=== PATIENT | male | born 1955 | race Caucasian/White ===

== ENCOUNTER 2021-07-13 09:17 | Inpatient (IN) ==
[2021-07-13] MEDS ORDERED: SODIUM CHLORIDE 0.9% 2,000 ML IV STA (09:28)
[2021-07-13] MEDS ORDERED: PANTOPRAZOLE INJ 80 MG in SODIUM CHLORIDE 0.9% 100 ML IV STA (09:28)
[2021-07-13] MEDS ORDERED: ONDANSETRON 4 MG/2 ML VIAL IV STA (09:28)
[2021-07-13 09:39] LABS: Basophils # 0.1 10*3/uL (0.0-0.2); Basophils % 0.7 % (0.0-0.8); Eosinophils # 0.6 10*3/uL (0.0-0.87); Eosinophils % 4.5 % (0.00-10.9); Hematocrit 37.5 VOL% (42.0-52.0); Hemoglobin 12.1 GM/DL (14.0-18.0); Immature Granulocytes % 0.3 %; Immature Granulocytes Absolute 0.04 #; Lymphocytes # 3.4 10*3/uL (1.4-4.0); Lymphocytes % 28.1 % (21.2-54.2); Mean Corpuscular HGB Conc 32.3 GM/DL (32-36); Mean Corpuscular Volume 96.2 FL (87-102); Mean Platelet Volume 10.2 FL (9.6-12.0); Neutrophils % 56.4 % (38.7-73.9); Platelet Count 336 T/CUMM (130-400); Red Cell Distribution Width 13.9 % (9.3-17.3); White Blood Count 12.1 T/CUMM (4-12)
[2021-07-13 09:50] LABS: PT Patient Result 11.3 SECS (10.5-12.0); Partial Thromboplastin Time 22.5 SECS (23.8-32.1)
[2021-07-13 10:09] LABS: Albumin 3.5 G/DL (3.4-5.0); Bilirubin,Total 0.4 MG/DL (0.20-1.00); Calcium 8.6 MG/DL (8.5-10.1); Osmolality,Calculated 289.3 MOS/KG (273-304); Total Protein 6.4 G/DL (6.4-8.2)
[2021-07-13] MEDS ORDERED: GLUCAGON 1 MG VIAL IM PRN (10:59)
[2021-07-13] MEDS ORDERED: DEXTROSE 50% 25 GM/50 ML VIAL IV PRN (10:59)
[2021-07-13] MEDS ORDERED: ONDANSETRON 4 MG/2 ML VIAL IV PRN (11:00)
[2021-07-13] MEDS ORDERED: ACETAMINOPHEN 325 MG TABLET PO PRN (11:00)
[2021-07-13] MEDS ORDERED: SODIUM CHLORIDE 0.9% 1,000 ML IV SCH (11:00)
[2021-07-13 11:41] VITALS: BP 125/79
[2021-07-13 12:30] LABS: Hematocrit 32.3 VOL% (42.0-52.0); Hemoglobin 10.7 GM/DL (14.0-18.0)
[2021-07-13 18:33] LABS: Hematocrit 29.3 VOL% (42.0-52.0); Hemoglobin 9.5 GM/DL (14.0-18.0)
[2021-07-13] MEDS: PANTOPRAZOLE 40 MG VIAL IV SCH (21:22)
[2021-07-14 02:04] LABS: Hematocrit 27.7 VOL% (42.0-52.0)
[2021-07-14 06:34] LABS: Basophils # 0.1 10*3/uL (0.0-0.2); Basophils % 0.6 % (0.0-0.8); Eosinophils # 0.4 10*3/uL (0.0-0.87); Eosinophils % 4.3 % (0.00-10.9); Hematocrit 30.5 VOL% (42.0-52.0); Hemoglobin 9.7 GM/DL (14.0-18.0); Immature Granulocytes % 0.4 %; Immature Granulocytes Absolute 0.03 #; Lymphocytes # 1.6 10*3/uL (1.4-4.0); Lymphocytes % 19.3 % (21.2-54.2); Mean Corpuscular HGB Conc 31.8 GM/DL (32-36); Mean Corpuscular Volume 97.8 FL (87-102); Mean Platelet Volume 10.5 FL (9.6-12.0); Monocytes % 8.5 % (1.7-12.7); Neutrophils % 66.9 % (38.7-73.9); Platelet Count 250 T/CUMM (130-400); Red Blood Count 3.12 MC/CUMM (3.8-5.5); White Blood Count 8.1 T/CUMM (4-12)
[2021-07-14 07:06] LABS: Calcium 7.7 MG/DL (8.5-10.1); Osmolality,Calculated 285.1 MOS/KG (273-304); Potassium 3.8 MMOL/L (3.5-5.1)
[2021-07-14] MEDS: PANTOPRAZOLE 40 MG VIAL IV SCH (08:00)
== END 2021-07-14 11:55 | disposition home or self-care (01) | DRG 378 ==
LOC: N.ED 09:17 → N.EDINP 09:17 → SUATTDRO 10:59 → N.CC 11:37 → UNDODISIN 07-14 11:55
PROVIDERS: ADMIT Family Medicine; ATTEND Internal Medicine

== ENCOUNTER 2021-07-15 00:37 | Inpatient (IN) ==
[2021-07-15 01:02] LABS: Hematocrit 22.5 VOL% (42.0-52.0); Hemoglobin 7.3 GM/DL (14.0-18.0); Mean Corpuscular HGB Conc 32.4 GM/DL (32-36); Mean Corpuscular Volume 97.4 FL (87-102); Mean Platelet Volume 10.4 FL (9.6-12.0); Platelet Count 217 T/CUMM (130-400); Red Blood Count 2.31 MC/CUMM (3.8-5.5); Red Cell Distribution Width 14.2 % (9.3-17.3); White Blood Count 9.2 T/CUMM (4-12)
[2021-07-15 02:02] LABS: Alanine Aminotransferase 22 U/L (16-61); Albumin 2.9 G/DL (3.4-5.0); Alkaline Phosphatase 62 U/L (45-117); Aspartate Amino Transferase 14 U/L (0-37); Bilirubin,Total < 0.39 MG/DL (0.20-1.00); Blood Urea Nitrogen 26 MG/DL (7-18); Calcium 7.7 MG/DL (8.5-10.1); Carbon Dioxide 25 MMOL/L (21-32); Estimated Glom Filtration Rate 110 ML/MIN; Glucose 115 MG/DL (74-106); Potassium 4.1 MMOL/L (3.5-5.1); Sodium 143 MMOL/L (136-145)
[2021-07-15] MEDS ORDERED: DEXTROSE 50% 25 GM/50 ML VIAL IV PRN (02:41)
[2021-07-15] MEDS ORDERED: SIMETHICONE CHEW 125 MG TABLET PO PRN (02:41)
[2021-07-15] MEDS ORDERED: GLUCAGON 1 MG VIAL IM PRN (02:41)
[2021-07-15] MEDS ORDERED: ACETAMINOPHEN 325 MG TABLET PO PRN (02:41)
[2021-07-15] MEDS ORDERED: ONDANSETRON 4 MG/2 ML VIAL IV PRN (02:41)
[2021-07-15] MEDS ORDERED: SODIUM CHLORIDE 0.9% 1,000 ML IV PRN ×3 (02:51→10:42)
[2021-07-15] MEDS: PANTOPRAZOLE 40 MG VIAL IV SCH ×3 (04:26→21:43)
[2021-07-15] MEDS: SODIUM CHLORIDE 0.9% 1,000 ML IV SCH ×3 (04:29→19:19)
[2021-07-15 06:35] LABS: Hematocrit 22.3 VOL% (42.0-52.0); Hemoglobin 7.2 GM/DL (14.0-18.0)
[2021-07-15 08:29] LABS: Hematocrit 21.8 VOL% (42.0-52.0); Hemoglobin 7.2 GM/DL (14.0-18.0)
[2021-07-15 21:08] LABS: Hemoglobin 8.4 GM/DL (14.0-18.0)
[2021-07-16 07:00] LABS: Basophils % 0.5 % (0.0-0.8); Eosinophils # 0.4 10*3/uL (0.0-0.87); Eosinophils % 4.5 % (0.00-10.9); Hematocrit 22.8 VOL% (42.0-52.0); Hemoglobin 7.5 GM/DL (14.0-18.0); Immature Granulocytes % 0.4 %; Immature Granulocytes Absolute 0.03 #; Lymphocytes # 1.5 10*3/uL (1.4-4.0); Lymphocytes % 19.6 % (21.2-54.2); Mean Corpuscular HGB Conc 32.9 GM/DL (32-36); Mean Corpuscular Volume 96.6 FL (87-102); Mean Platelet Volume 10.2 FL (9.6-12.0); Monocytes % 9.2 % (1.7-12.7); Neutrophils % 65.8 % (38.7-73.9); Platelet Count 177 T/CUMM (130-400); Red Blood Count 2.36 MC/CUMM (3.8-5.5); Red Cell Distribution Width 15.4 % (9.3-17.3); White Blood Count 7.7 T/CUMM (4-12)
[2021-07-16 07:23] LABS: Osmolality,Calculated 291.7 MOS/KG (273-304); Potassium 4.2 MMOL/L (3.5-5.1)
[2021-07-16] MEDS: SODIUM CHLORIDE 0.9% 1,000 ML IV SCH ×2 (08:28→17:16)
[2021-07-16] MEDS: PANTOPRAZOLE 40 MG VIAL IV SCH ×2 (08:33→22:05)
[2021-07-16] MEDS ORDERED: SODIUM CHLORIDE 0.9% 1,000 ML IV PRN (09:45)
[2021-07-16 12:07] LABS: Hematocrit 22.6 VOL% (42.0-52.0); Hemoglobin 7.3 GM/DL (14.0-18.0)
[2021-07-16] MEDS ORDERED: BISACODYL 5 MG TABLET PO ONE (16:00)
[2021-07-16] MEDS ORDERED: POLYETHYLENE GLYCOL POWDER 255 GM BOTTLE PO ONE (18:00)
[2021-07-17] MEDS: SODIUM CHLORIDE 0.9% 1,000 ML IV SCH ×4 (00:24→19:21)
[2021-07-17 00:48] LABS: Hematocrit 26.6 VOL% (42.0-52.0)
[2021-07-17 00:54] LABS: Hemoglobin 8.9 GM/DL (14.0-18.0)
[2021-07-17] MEDS ORDERED: POLYETHYLENE GLYCOL POWDER 255 GM BOTTLE PO ONE (05:00)
[2021-07-17 05:38] LABS: Hematocrit 25.2 VOL% (42.0-52.0); Hemoglobin 8.1 GM/DL (14.0-18.0)
[2021-07-17 05:40] LABS: Basophils % 0.3 % (0.0-0.8); Eosinophils # 0.3 10*3/uL (0.0-0.87); Eosinophils % 3.2 % (0.00-10.9); Hemoglobin 8.1 GM/DL (14.0-18.0); Immature Granulocytes % 0.7 %; Immature Granulocytes Absolute 0.06 #; Lymphocytes # 1.7 10*3/uL (1.4-4.0); Lymphocytes % 19.3 % (21.2-54.2); Mean Corpuscular HGB Conc 32.4 GM/DL (32-36); Mean Corpuscular Volume 94.3 FL (87-102); Mean Platelet Volume 10.5 FL (9.6-12.0); Monocytes % 10.7 % (1.7-12.7); Neutrophils % 65.8 % (38.7-73.9); Platelet Count 168 T/CUMM (130-400); Red Blood Count 2.65 MC/CUMM (3.8-5.5); Red Cell Distribution Width 16.8 % (9.3-17.3); White Blood Count 8.9 T/CUMM (4-12)
[2021-07-17 05:43] LABS: PT Patient Result 11.5 SECS (10.5-12.0)
[2021-07-17 05:53] LABS: Calcium 6.9 MG/DL (8.5-10.1); Potassium 3.8 MMOL/L (3.5-5.1)
[2021-07-17] MEDS ORDERED: LACTATED RINGERS 1,000 ML IV SCH (08:00)
[2021-07-17] MEDS: PANTOPRAZOLE 40 MG VIAL IV SCH ×2 (10:02→21:24)
[2021-07-17 12:22] LABS: Hematocrit 24.5 VOL% (42.0-52.0); Hemoglobin 8.2 GM/DL (14.0-18.0)
[2021-07-17] MEDS ORDERED: propofoL 200 MG/20 ML VIAL IV ONE (14:04)
[2021-07-17] MEDS ORDERED: LIDOCAINE 2% 5 ML VIAL ONE (14:04)
[2021-07-17 19:07] LABS: Hematocrit 25.3 VOL% (42.0-52.0); Hemoglobin 8.3 GM/DL (14.0-18.0)
[2021-07-18] MEDS: SODIUM CHLORIDE 0.9% 1,000 ML IV SCH (04:09)
[2021-07-18 05:18] LABS: Basophils % 0.5 % (0.0-0.8); Eosinophils # 0.4 10*3/uL (0.0-0.87); Eosinophils % 5.1 % (0.00-10.9); Hemoglobin 8.4 GM/DL (14.0-18.0); Immature Granulocytes % 1.1 %; Immature Granulocytes Absolute 0.08 #; Lymphocytes # 1.3 10*3/uL (1.4-4.0); Lymphocytes % 17.6 % (21.2-54.2); Mean Corpuscular HGB Conc 33.6 GM/DL (32-36); Mean Platelet Volume 10.1 FL (9.6-12.0); Monocytes % 9.7 % (1.7-12.7); Platelet Count 207 T/CUMM (130-400); Red Blood Count 2.66 MC/CUMM (3.8-5.5); Red Cell Distribution Width 16.8 % (9.3-17.3); White Blood Count 7.3 T/CUMM (4-12)
[2021-07-18 05:47] LABS: Calcium 7.1 MG/DL (8.5-10.1); Osmolality,Calculated 283.8 MOS/KG (273-304); Potassium 3.5 MMOL/L (3.5-5.1)
[2021-07-18] MEDS: PANTOPRAZOLE 40 MG VIAL IV SCH (09:24)
[2021-07-18 12:08] VITALS: BP 135/73
[2021-07-18] MEDS ORDERED: PANTOPRAZOLE 40 MG TABLET PO SCH (21:00)
== END 2021-07-18 15:58 | disposition home or self-care (01) | DRG 813 ==
LOC: N.ED 00:37 → SUATTDRO 02:41 → N.EDINP 02:41 → N.5E 04:41
PROVIDERS: ADMIT Emergency Medicine; ATTEND Internal Medicine